=== PATIENT | female | born 1980 | race Hispanic/Latino ===

== ENCOUNTER 2023-12-12 18:26 | Observation (INO) | payer SELFPAY ==
[2023-12-12 20:44] LABS: #Basophils 0.02 10x3/uL (0.0-0.2); #Eosinphils 0.12 10x3/uL (0.0-0.5); #Monocytes 0.48 10x3/uL (0.0-1.1); #Neutrophils 4.79 10x3/uL (1.5-8.4); %Basophils 0.3 % (0.0-2.0); %Eosinophils 1.6 % (0.0-6.0); %Lymphocytes 28.2 % (18.0-47.0); %Monocytes 6.3 % (0.0-10.0); %Neutrophils 63.3 % (40.0-75.0); Hematocrit 25.8 % (34.9-44.5); Hemoglobin 7.1 g/dL (12.0-15.5); Mean Corpuscular HGB CONC 27.5 g/dL (32.0-36.0); Mean Corpuscular Hemoglobin 21.2 pg (27.0-33.0); Platelet Count 332 10x3/uL (150-450); RBC Distribution Width 21.2 % (11.5-14.5); Red Blood Cell (RBC) Count 3.35 10x6/uL (3.90-5.03); White Blood Cell (WBC) Count 7.6 10x3/uL (3.5-10.5)
[2023-12-12 21:10] LABS: Anisocytosis SLIGHT = 6-15 cells (100X) (0-5/hpf); Hypochromia SLIGHT = 6-15 cells (100X) (0-5/hpf); Microcytosis SLIGHT = 6-15 cells (100X) (0-5/hpf); Platelet Adequacy Comment Appears Adequate; Polychromasia SLIGHT = 2-3 cells (100X) (0-2/hpf)
[2023-12-13 03:24] VITALS: BMI 35.4
[2023-12-13] MEDS: Sodium Chloride 0.9% 1,000 ML IV SCH (05:36)
[2023-12-13] MEDS ORDERED: CEFAZOLIN 2 GM in Sodium Chloride 0.9% 100 ML IVPB SCH (07:30)
[2023-12-13] MEDS ORDERED: metroNIDAZOLE 500 MG in Premix 1 BAG IVPB SCH (07:30)
[2023-12-13] MEDS ORDERED: SUMAtriptan Succinate 50 MG TAB PO PRN (07:32)
[2023-12-13 08:31] LABS: BHCG - Serum Negative (NEGATIVE); Pregs Control Background? CLEAR/WHITE (CLR/WHITE); Pregs Control Bar Appear? YES (CONTROL BAR)
[2023-12-13 08:36] LABS: #Basophils 0.02 10x3/uL (0.0-0.2); #Monocytes 0.48 10x3/uL (0.0-1.1); #Neutrophils 4.71 10x3/uL (1.5-8.4); %Basophils 0.3 % (0.0-2.0); %Eosinophils 2.8 % (0.0-6.0); %Lymphocytes 23.5 % (18.0-47.0); %Monocytes 6.8 % (0.0-10.0); %Neutrophils 66.2 % (40.0-75.0); Hematocrit 30.3 % (34.9-44.5); Hemoglobin 8.9 g/dL (12.0-15.5); Mean Corpuscular HGB CONC 29.4 g/dL (32.0-36.0); Mean Corpuscular Hemoglobin 23.4 pg (27.0-33.0); Mean Corpuscular Volume 79.5 fL (81.6-98.3); Mean Platelet Volume 10.4 fL (7.4-10.4); Platelet Count 255 10x3/uL (150-450); RBC Distribution Width 19.1 % (11.5-14.5); Red Blood Cell (RBC) Count 3.81 10x6/uL (3.90-5.03); White Blood Cell (WBC) Count 7.1 10x3/uL (3.5-10.5)
[2023-12-13] MEDS ORDERED: EPINEPHrine 1 MG/ML VIAL ONE (08:41)
[2023-12-13] MEDS ORDERED: Bupivacaine PF 0.5% 30 ML VIAL ONE (08:41)
[2023-12-13] MEDS: metFORMIN 500 MG TAB PO SCH (08:50)
[2023-12-13] MEDS: Hydrochlorothiazide 25 MG TAB PO SCH (08:50)
[2023-12-13] MEDS: Methimazole 5 MG TAB PO SCH (08:51)
[2023-12-13] MEDS ORDERED: Ondansetron PF 4 MG/2 ML Vial ONE (08:58)
[2023-12-13] MEDS ORDERED: Midazolam HCl 2 mg/2 ml Vial ONE (08:58)
[2023-12-13] MEDS ORDERED: Rocuronium Bromide 10 MG/ML (10ML VIAL) ONE (08:58)
[2023-12-13] MEDS ORDERED: Dexamethasone 20 MG/5 ML VIAL ONE (08:58)
[2023-12-13] MEDS ORDERED: Fentanyl 250 MCG/5 ML VIAL ONE (08:58)
[2023-12-13] MEDS ORDERED: PROPOFOL 20 ML ONE (08:58)
[2023-12-13] MEDS ORDERED: Lidocaine 1% PF 5 ML VIAL ONE (08:58)
[2023-12-13] MEDS ORDERED: Ketorolac Tromethamine 30 MG (1 mL) VIAL ONE (08:59)
[2023-12-13] MEDS ORDERED: SUGAMMADEX SODIUM 200 MG/2 ML VIAL ONE (09:00)
[2023-12-13] MEDS ORDERED: metroNIDAZOLE 500 MG (100 mL) BAG ONE (09:03)
[2023-12-13] MEDS ORDERED: CEFAZOLIN 2 GM VIAL ONE (09:57)
[2023-12-13] MEDS ORDERED: PHENYLEPHRINE-NS 100 MCG/ML 10 ML SYRINGE ONE (10:24)
[2023-12-13] MEDS ORDERED: ePHEDrine Sulfate 50 MG/10 ML VIAL ONE (10:39)
[2023-12-13] MEDS ORDERED: fentaNYL 50 mcg/mL 1 mL Vial ONE ×2 (13:08→13:30)
[2023-12-13] MEDS ORDERED: HYDROcodone/Acetaminophen 5/325 mg Tablet PO PRN (14:43)
[2023-12-13] MEDS ORDERED: Ondansetron HCl/PF 8 MG, Admixture Fee 1 EACH in Sodium Chloride 0.9% 50 ML IVPB PRN (14:45)
[2023-12-13] MEDS: HYDROcodone/Acetaminophen 5/325 mg Tablet PO PRN (14:48)
[2023-12-13] MEDS: Morphine 4 MG/ML VIAL SLOW IVP SCH (15:49)
[2023-12-13 20:32] VITALS: BP 137/76; TEMP 98.7
== END 2023-12-13 21:00 | disposition home or self-care (01) ==
LOC: CSHSDC/OP 18:26 → CSHPP 19:29 → INTOOBSV 19:29
PROVIDERS: ADMIT Obstetrics & Gynecology; ATTEND Obstetrics & Gynecology
PROC: 0UT9FZZ Resection of Uterus, Via Natural or Artificial Opening With Percutaneous Endoscopic Assistance (ICD-10-PCS; principal; 2023-12-13)
PROC: 0UT7FZZ Resection of Bilateral Fallopian Tubes, Via Natural or Artificial Opening With Percutaneous Endoscopic Assistance (ICD-10-PCS; 2023-12-13)
PROC: 0UN74ZZ Release Bilateral Fallopian Tubes, Percutaneous Endoscopic Approach (ICD-10-PCS; 2023-12-13)
DX: D25.9 Leiomyoma of uterus, unspecified (principal); N80.03 Adenomyosis of the uterus; N72 Inflammatory disease of cervix uteri; N87.9 Dysplasia of cervix uteri, unspecified; N88.8 Other specified noninflammatory disorders of cervix uteri; N80.9 Endometriosis, unspecified; D64.9 Anemia, unspecified; N80.103 Endometriosis of bilateral ovaries, unspecified depth; N73.6 Female pelvic peritoneal adhesions (postinfective); N70.11 Chronic salpingitis; E28.2 Polycystic ovarian syndrome; Z79.84 Long term (current) use of oral hypoglycemic drugs; Z79.899 Other long term (current) drug therapy
CPT/HCPCS: 36415; 36430; 84703; 85025; 86850; 86900; 86901; 88307; C9250; J0171; J0665; J1100; J1885; J2250; J2270; J2405; J2704; J3010; J7050; P9016; P9040